=== PATIENT | male | born 1940 | race Caucasian/White ===

== ENCOUNTER → 2023-04-21 13:13 | Outpatient (BNVA) | payer MEDICARE, SELFPAY | PROVIDERS: PCP Family Medicine; Referring Provider Family Medicine; Visit Provider Psychiatry & Neurology Neurology | DX: G20 Parkinson's disease (principal); Z99.3 Dependence on wheelchair; E11.42 Type 2 diabetes mellitus with diabetic polyneuropathy; Z86.73 Personal history of transient ischemic attack (TIA), and cerebral infarction without residual deficits; K59.2 Neurogenic bowel, not elsewhere classified; N31.9 Neuromuscular dysfunction of bladder, unspecified | CPT/HCPCS: 99205 ==

== ENCOUNTER → 2023-06-23 12:59 | Outpatient (BNVA) | payer MEDICARE, SELFPAY | PROVIDERS: PCP Family Medicine; Referring Provider Family Medicine; Visit Provider Psychiatry & Neurology Neurology | DX: G95.89 Other specified diseases of spinal cord (principal); Z99.3 Dependence on wheelchair; G20 Parkinson's disease; K59.2 Neurogenic bowel, not elsewhere classified; Z86.73 Personal history of transient ischemic attack (TIA), and cerebral infarction without residual deficits; I13.0 Hypertensive heart and chronic kidney disease with heart failure and stage 1 through stage 4 chronic kidney disease, or unspecified chronic kidney disease; E11.22 Type 2 diabetes mellitus with diabetic chronic kidney disease; N18.9 Chronic kidney disease, unspecified; I50.9 Heart failure, unspecified; J44.9 Chronic obstructive pulmonary disease, unspecified | CPT/HCPCS: 99214 ==